=== PATIENT | female | born 1960 | race Caucasian/White ===

== ENCOUNTER 2023-12-14 15:51 | Emergency (ER) | payer OTHER ==
[~2023-12-14] VITALS: Ht 165.1 cm; Wt 82.6 kg
[2023-12-14 15:57] VITALS: BP_SYST 143; PULSE 71; RESP 18; TEMP 98.5; O2SAT 97
[2023-12-14] MEDS: HYDROcodone/ACETAMIN 5-325 MG TAB (NORCO/ VICODIN) PO ONE (17:06)
[2023-12-14] MEDS ORDERED: IBUP-1969 PO (19:27)
[2023-12-14] MEDS ORDERED: ACET-2634 PO (19:27)
[2023-12-14] MEDS ORDERED: KETOROLAC TROMETHAMINE 30 MG VIAL ONE (19:48)
[2023-12-14] MEDS: KETOROLAC TROMETHAMINE 30 MG VIAL IM ONE (19:52)
[2023-12-14 19:55] VITALS: BP_SYST 143; PULSE 71; RESP 18; TEMP 98.5; O2SAT 97
== END 2023-12-14 19:55 | disposition home or self-care (01) ==
LOC: SED 15:51
DX: S00.03XA Contusion of scalp, initial encounter (principal); S60.211A Contusion of right wrist, initial encounter; S90.31XA Contusion of right foot, initial encounter; Z90.49 Acquired absence of other specified parts of digestive tract; Z90.89 Acquired absence of other organs; Z79.899 Other long term (current) drug therapy; W06.XXXA Fall from bed, initial encounter; Y93.89 Activity, other specified; Y92.89 Other specified places as the place of occurrence of the external cause; Y99.8 Other external cause status
CPT/HCPCS: 99285; 70450; 73110; 73600; 73630; 96372; 29125; J1885